=== PATIENT | female | born 1995 | race African-American/Black ===

== ENCOUNTER 2018-08-14 17:55 | Emergency (ER) | payer MEDICAID, OTHER ==
[~2018-08-14] VITALS: Ht 152.4 cm; Wt 59.0 kg
[2018-08-14 18:23] VITALS: BP 122/66
== END 2018-08-14 19:31 | disposition home or self-care (01) ==
LOC: ER 18:00
DX: M79.645 Pain in left finger(s) (principal)
CPT/HCPCS: 73140; 99283; A4606